=== PATIENT | female | born 1975 | race Caucasian/White ===

== ENCOUNTER 2024-03-30 16:35 | Emergency (ER) | payer OTHER ==
[~2024-03-30] VITALS: Ht 177.8 cm; Wt 113.6 kg
[2024-03-30 16:36] VITALS: BP 162/86; PULSE 78; RESP 18; TEMP 98.5; O2SAT 98
== END 2024-03-30 19:24 | disposition home or self-care (01) ==
LOC: ER 16:35
DX: S51.012A Laceration without foreign body of left elbow, initial encounter (principal); Z88.1 Allergy status to other antibiotic agents; Z91.040 Latex allergy status; W01.0XXA Fall on same level from slipping, tripping and stumbling without subsequent striking against object, initial encounter; Y93.89 Activity, other specified; Y92.89 Other specified places as the place of occurrence of the external cause; Y99.8 Other external cause status
CPT/HCPCS: 12001; 99282; A6222; A6258; A6449